=== PATIENT | female | born 1945 | race Caucasian/White ===

== ENCOUNTER 2020-12-07 01:50 | Emergency (ER) | payer MEDICARE, OTHER, SELFPAY ==
--- NOTE | ~2020-12-07 | CT_ITS ---
EXAMINATION: CT HEAD WITHOUT CONTRAST CT CERVICAL SPINE WITHOUT CONTRAST CLINICAL INFORMATION: Fall. COMPARISON: None. TECHNIQUE: Multidetector CT imaging of the head and cervical spine was performed without the use of intravenous contrast. Multiplanar reformats are reviewed. This CT examination was performed using dose optimization techniques as appropriate, variously including the following: *Automated exposure control *Adjustment of mA and/or kV according to patient size (this includes techniques or standardized protocols for targeted exams where dose is matched to indication/reason for exam; i.e. extremities or head) *Use of iterative reconstruction technique DLP: 980 mGy-cm. FINDINGS: There is no evidence of acute intracranial hemorrhage or territorial infarction. No abnormal mass effect or midline shift is seen. Spears to white matter differentiation is well preserved. No extra-axial fluid collections are identified. The ventricles are normal in size. Mild patchy subcortical and periventricular white matter low-attenuation changes statistically related to chronic small vessel ischemic disease. Thin left posterior parietal subgaleal hematoma. Underlying calvarium intact. The mastoid air cells and visualized portions of the paranasal sinuses are well-aerated. Atlantooccipital alignment is maintained. The vertebral bodies and posterior elements align normally. No acute fracture or subluxation. Vertebral body heights are maintained.Endplate osteophytes and tibial arthrosis present throughout the cervical spine, most likely from C3 through C6. Facet arthropathy present throughout the cervical spine. The cervicomedullary junction and spinal cord are grossly unremarkable. The paraspinal soft tissues are unremarkable. The imaged lung apices are clear CT/CT head/brain wo con IMPRESSION: No acute intracranial pathology. No cervical spine fracture or malalignment.
--- NOTE | ~2020-12-07 | CT_ITS ---
EXAMINATION: CT HEAD WITHOUT CONTRAST CT CERVICAL SPINE WITHOUT CONTRAST CLINICAL INFORMATION: Fall. COMPARISON: None. TECHNIQUE: Multidetector CT imaging of the head and cervical spine was performed without the use of intravenous contrast. Multiplanar reformats are reviewed. This CT examination was performed using dose optimization techniques as appropriate, variously including the following: *Automated exposure control *Adjustment of mA and/or kV according to patient size (this includes techniques or standardized protocols for targeted exams where dose is matched to indication/reason for exam; i.e. extremities or head) *Use of iterative reconstruction technique DLP: 980 mGy-cm. FINDINGS: There is no evidence of acute intracranial hemorrhage or territorial infarction. No abnormal mass effect or midline shift is seen. Spears to white matter differentiation is well preserved. No extra-axial fluid collections are identified. The ventricles are normal in size. Mild patchy subcortical and periventricular white matter low-attenuation changes statistically related to chronic small vessel ischemic disease. Thin left posterior parietal subgaleal hematoma. Underlying calvarium intact. The mastoid air cells and visualized portions of the paranasal sinuses are well-aerated. Atlantooccipital alignment is maintained. The vertebral bodies and posterior elements align normally. No acute fracture or subluxation. Vertebral body heights are maintained.Endplate osteophytes and tibial arthrosis present throughout the cervical spine, most likely from C3 through C6. Facet arthropathy present throughout the cervical spine. The cervicomedullary junction and spinal cord are grossly unremarkable. The paraspinal soft tissues are unremarkable. The imaged lung apices are clear CT/CT cervical spine wo con IMPRESSION: No acute intracranial pathology. No cervical spine fracture or malalignment.
[2020-12-07 02:03] VITALS: BP 206/101; PULSE 87; RESP 16; TEMP 37.1; O2SAT 98; BMI 23.1
[2020-12-07 02:14] VITALS: BP 153/96; PULSE 88; O2SAT 99
--- NOTE | 2020-12-07 02:21 | PC.NURSE ---
at bedside for primary eval.
--- NOTE | 2020-12-07 02:29 | ED_ITS ---
HPI - Fall General Chief Complaint: Fall Stated Complaint: fall Time Seen by Provider: 12/07/20 02:28 Source: patient Mode of arrival: EMS History of Present Illness HPI Narrative: This is a 75-year-old female with history of hypertension and arrives via EMS after she crouched down to pick a Peter pin up off of the bathroom floor began to rise back up, became unsteady without any associated dizziness/palpitations and states that she rolled over backwards hitting her gluteus 1st and then striking her head hard but denies any loss of consciousness. She denies any use of blood thinners. Related Data Allergies Allergy/AdvReac Type Severity Reaction Status Date / Time bupropion [From WELLBUTRIN] AdvReac Unknown ANXIETY Unverified 12/07/20 02:11 ibuprofen [IBUPROFEN] AdvReac Unknown DIZZY Unverified 12/07/20 02:11 Review of Systems Review of Systems: Pertinent positives and negatives as stated in HPI 10 point review of systems is otherwise negative. PMFSH Past Medical History Source: nursing notes reviewed Medical History Hypertension Lymphoma in remission Rheumatoid arthritis Social History Social History Advance Directives: No Advance Directives Information Provided: No Physical Exam Vital Signs: Vital Signs: Last Vital Signs Temp 98.7 F 12/07/20 02:03 Pulse 87 12/07/20 02:03 Resp 16 12/07/20 02:03 BP 206/101 H 12/07/20 02:03 Pulse Ox 98 12/07/20 02:03 Body Mass Index 23.1 VITAL SIGNS: Reviewed. GENERAL: Well developed, well nourished, in no acute distress. HEAD: Normocephalic/atraumatic EYES: PERRLA, EOMI OROPHARYNX: no oral lesions noted, posterior pharynx clear NECK: C-collar in place, no midline cervical spine tenderness on palpation LUNGS: Normal breath sounds. No adventitious sounds or accessory muscle use. SpO2<98> CARDIOVASCULAR: Regular rate and rhythm without noted murmurs ABDOMEN: Soft, non-tender, non-distended with bowel sounds. No rigidity. No guarding. No palpable masses or hernias notede. NEUROLOGIC: Alert and oriented x 4. Strength and sensation to light touch were grossly intact x 4. Course Course Course Narrative: 75-year-old female with history and clinical presentation consistent with head strike after fall. Doubt intracranial pathology, but will obtain head and cervical spine CT scans. C-collar removed after review of CT c-spine imaging that demonstrated no acute findings and exam was without midline tenderness on palpation or on ROM. No focal neurological deficits to suggest spinal cord injury Review of all investigations without acute findings and patient was discharged in stable condition. Discharge Plan Discharge Clinical Impression: Fall Patient Disposition: Home, Self-Care Instructions: Fall Prevention for Older Adults (ED) Additional Instructions: 1. Please resume all home medications as prescribed. 2. Follow-up with your primary care provider in the next 2-3 days for re- evaluation. Return to the ER for any acute worsening of symptoms. Referrals: Physician,Unknown [Primary Care Provider] - 2 days
--- NOTE | 2020-12-07 02:47 | PC.NURSE ---
Pt returns from CT on hospital bed. Pt aware of plan to await results. Pt requesting to use the bathroom, provided with a bedside commode.
[2020-12-07 04:28] VITALS: BP 176/100; PULSE 68; RESP 16; O2SAT 98
== END 2020-12-07 04:31 | disposition home or self-care (01) ==
PROVIDERS: Emergency Provider Student in an Organized Health Care Education/Training Program
DX: Z04.3 Encounter for examination and observation following other accident (principal); I10 Essential (primary) hypertension; Z91.81 History of falling
CPT/HCPCS: 70450; 72125; 99284

== ENCOUNTER 2023-02-06 16:38 | Emergency (ER) | payer MEDICARE, OTHER, SELFPAY ==
--- NOTE | ~2023-02-06 | XR_ITS ---
EXAMINATION: XR CHEST CLINICAL INFORMATION: Altered mental status. COMPARISON: None available. TECHNIQUE: 2 views of the chest were obtained. FINDINGS: Subtle focal airspace disease at the right middle lobe, in the appropriate clinical setting may represent evolving pneumonia. Subtle focal asymmetry is noted at the first partial chondral junction on the right, may represent prominent costochondral junction versus airspace disease, seen only on the frontal projection. The remainder of the lung barrett are clear. The cardiac mediastinal silhouette is within normal limit. No evidence of any pleural effusion or pneumothorax. The heart size is within normal limits. XR/XR chest 2V IMPRESSION: 1. Subtle asymmetric focal airspace disease at right middle lobe, in the appropriate clinical setting may represent pneumonia. 2. Focal asymmetric opacity at right lung apex in the region of the costochondral junction, may represent hypertrophic costochondral junction versus underlying airspace disease. Follow-up to resolution is recommended.
--- NOTE | ~2023-02-06 | CT_ITS ---
EXAMINATION: CT HEAD WITHOUT CONTRAST CLINICAL INFORMATION: Head injury COMPARISON: CT head from 12/07/2020 TECHNIQUE: Contiguous axial imaging was performed from the skull base to vertex without intravenous administration of contrast. This CT examination was performed using dose optimization techniques as appropriate, variously including the following: *Automated exposure control *Adjustment of mA and/or kV according to patient size (this includes techniques or standardized protocols for targeted exams where dose is matched to indication/reason for exam; i.e. extremities or head) *Use of iterative reconstruction technique DLP: 606.11 mGy-cm FINDINGS: There is no evidence of acute intracranial hemorrhage or territorial infarction. Chronic white matter small vessel ischemic changes. Cerebral atrophy with commensurate ventricular changes. No abnormal mass effect or midline shift is seen. Spears to white matter differentiation is well preserved. No extra-axial fluid collections are identified. There is no abnormal attenuation within the brain parenchyma. Slight soft tissue swelling along the left posterior parieto-occipital bone without underlying bony defect identified. The osseous structures and soft tissues are normal. The mastoid air cells and visualized portions of the paranasal sinuses are well aerated. CT/CT cervical spine wo IV con IMPRESSION: 1. No acute intracranial pathology. 2. Slight soft tissue swelling along the left posterior parieto-occipital bone without underlying bony defect identified. EXAMINATION: Noncontrast CT scan of the cervical spine. INDICATION: Pain COMPARISON: CT cervical spine from 12/07/2020 TECHNIQUE: Helical, multidetector axial images were obtained from the occiput to the upper thorax. Coronal and sagittal reformats of the cervical spine were provided for interpretation. DLP: 223.02 mGy-cm FINDINGS: No acute fractures or dislocations of the cervical spine are seen. Multilevel degenerative changes. Straightening of normal cervical curvature which may be secondary to patient positioning versus muscle spasm. Anatomic alignment and positioning of the vertebral bodies and posterior elements is noted. The atlantoaxial joint and craniovertebral articulations are normal without evidence of subluxation. There is no prevertebral soft tissue swelling. Stable appearing heterogeneous right thyroid nodule measuring up to 2.3 cm. If clinically warranted can consider further evaluation with dedicated thyroid ultrasound. Biapical pleural parenchymal scarring. IMPRESSION: 1. No acute visible fracture or dislocation. 2. Multilevel degenerative changes. Straightening of normal cervical curvature which may be secondary to patient positioning versus muscle spasm. 3. Stable appearing heterogeneous right thyroid nodule measuring up to 2.3 cm. If clinically warranted can consider further evaluation with dedicated thyroid ultrasound.
[2023-02-06 16:46] VITALS: BP 162/88; PULSE 92; O2SAT 96
[2023-02-06 16:49] VITALS: BP 183/90; PULSE 90; RESP 18; TEMP 37; O2SAT 97; BMI 19.9
--- NOTE | 2023-02-06 17:29 | ED_ITS ---
HPI - Fall General Chief Complaint: Fall Stated Complaint: Fall w/ headstrike Time Seen by Provider: 02/06/23 16:54 Source: patient and EMS Mode of arrival: EMS Limitations: other (Alzheimer's) History of Present Illness HPI Narrative: 77-year-old female with reported history of early-onset Alzheimer's presents after a fall. Was a witnessed fall that appear to be mechanical when she missed 1 step. Patient does not remember any of the events that took place. She did reportedly hit her head. Is unclear whether she lost consciousness. She denies any headache, nausea, vomiting. There is no clear relieving or exacerbating features. Patient denies any extremity pain or complaints. EMS brought patient in. They placed a crit cervical collar on for her. She denies any active neck pain except for the collar. She denies any numbness or tingling or focal weakness. Related Data Home Medications Medication Instructions Recorded Confirmed donepezil 10 mg tablet 10 mg PO BEDTIME 02/06/23 02/06/23 leflunomide 20 mg tablet 20 mg PO DAILY 02/06/23 lifitegrast 5 % eye drops in a 1 drp ophthalmic (eye) BID 02/06/23 dropperette (Xiidra) metoprolol succinate 50 mg 50 mg PO DAILY 02/06/23 02/06/23 tablet,extended release 24 hr prednisone 1 mg tablet 3 mg PO DAILY 02/06/23 sertraline 25 mg tablet 25 mg PO DAILY 02/06/23 02/06/23 valsartan 80 mg tablet 80 mg PO DAILY 02/06/23 02/06/23 Allergies Allergy/AdvReac Type Severity Reaction Status Date / Time bupropion [From WELLBUTRIN] AdvReac Unknown ANXIETY Verified 02/06/23 21:45 ibuprofen [IBUPROFEN] AdvReac Unknown DIZZY Verified 02/06/23 21:45 Review of Systems Review of Systems: CONSTITUTIONAL: Denies weight loss, fever and chills. HEENT: Denies changes in vision and hearing. RESPIRATORY: Denies SOB and cough. CV: Denies palpitations no CP. GI: Denies abdominal pain, nausea, vomiting and diarrhea. : Denies dysuria and urinary frequency. MSK: Denies myalgia and joint pain. SKIN: Denies rash and pruritus. NEUROLOGICAL: Denies headache and syncope. PSYCHIATRIC: Denies recent changes in mood. Denies anxiety and depression. All other ROS are negative unless in HPI [facility] Past Medical History Medical History Hypertension Lymphoma in remission Rheumatoid arthritis Social History Social History Alcohol intake: never Smoked in Last 30 Days: No Use of substances other than those prescribed or required for medical reasons: No Advance Directives: No Advance Directives Information Provided: No Physical Exam Vital Signs: Vital Signs: Last Vital Signs Temp 98.5 F 02/06/23 19:15 Pulse 89 02/06/23 19:15 Resp 16 02/06/23 19:15 BP 177/87 H 02/06/23 19:15 Pulse Ox 98 02/06/23 19:15 O2 Del Method Room Air 02/06/23 19:15 BMI result Body Mass Index 19.9 GEN: Well developed, no acute distress, alert, oriented HEENT: Normocephalic, atraumatic, normal external ears, nose appears normal, no oropharyngeal edema or exudates Eyes: Normal to appearance Neck: C-collar in place, does have midline tenderness at C7-T1 Respiratory: Talks in complete sentences, no respiratory distress, clear to auscultation bilaterally Cardiovascular: Regular rate and rhythm, no murmurs rubs or gallops Abdomen: Soft, nontender, nondistended, no guarding, no rebound Back: No CVA tenderness Extremities: No clubbing cyanosis or edema Neurologic: No focal neurologic deficits, cranial nerves 2-12 intact, strength is 5/5 bilaterally Skin: No rash Course Reevaluation(s) Reevaluation #1: C-collar will be removed Time: 18:04 Reevaluation #2: Patient is a bit unsteady on her feet. She will stay overnight for physical therapy and Case Management evaluation. I will place the patient physician observation. Will also check urinalysis. Time: 18:44 Reevaluation #3: transition of care to Dr. Tam Time: 02:00 Medications Administered Discontinued Medications Generic Name Dose Route Start Last Admin Trade Name Freq PRN Reason Stop Dose Admin Metoprolol Succinate 50 mg 02/06/23 18:08 02/06/23 18:14 Metoprolol Succinate Er 50 Mg Tab.Er.24h PO 02/06/23 18:09 50 mg ONCE ONE Administration Protocol Valsartan 40 mg 02/06/23 18:08 02/06/23 18:14 Valsartan 40 Mg Tablet PO 02/06/23 18:09 40 mg ONCE ONE Administration Protocol Medical Decision Making Medical Decision Making MDM Narrative: Patient has memory deficits but had a witnessed mechanical fall. She did reportedly hit her head. There is no evidence of head trauma. Will obtain a CT of the head and cervical spine to make sure there is no acute injury. Patient offers no focal deficits. She denies any active symptoms at this time. No indication for routine laboratory analysis. Differential Diagnosis Differential Diagnoses: The differential diagnosis associated with the presentation includes (Head injury, ICH, subdural hematoma, epidural hematoma, subarachnoid hemorrhage, memory deficit, concussion, postconcussive syndrome) Admission/Observation Consideration of admission/observation: Escalation of care including admission/observation considered Lab Data Labs: Lab Results 02/06/23 Range/Units 22:22 Urine Color Yellow Urine Appearance Clear Urine pH 5.5 (5.0-9.0) Ur Specific [place] 1.015 (1.005-1.025) Urine Protein Negative (Neg-Trace) mg/dL Urine Glucose (UA) Negative (Negative) mg/dL Urine Ketones Negative (Negative) mg/dL Urine Blood Negative (Negative) Urine Nitrite Negative (Negative) Ur Leukocyte Esterase Negative (Negative) Independent Interpretation I performed an independent interpretation of an: CT Scan (Cervical spine, no acute traumatic injury, head: No acute traumatic injury) Radiology Impression Discussion of test interpretation with radiology: I have reviewed the radiologist's reading. Radiologist Impression: ? Rob Rich MD [facility] My List ?7? To Be Seen ?5? ED ?15? EDBH ?3? [facility]/RP/Pivot ?4? Beryl Omer? ? ED Bed 02 - ED2? General Medical? 26 F? With Doctor? 3? ?? 1h 40m? ?? REG ER? Draft? Rob Rich lump on left side of abd? Order BP 114/84 Pulse 78 Resp 18 Temp 98.2 F O2 Sat 100% (RA) Ultrasound Zulma Pena? ? ED Bed 06 - ED6? Fall? 77 F? With Doctor? 3? ?? 1h 25m? ?? REG ER? Draft? HilarioRob Fall w/ headstrike? Order BP 201/102 Pulse 100 Resp 18 Temp O2 Sat 98% (RA) CT Marissa Meadows? ? ED Bed 08 - ED8? Arrhythmia/Palpitations? 69 F? With Doctor? 2? ?? 1h 15m? ?? REG ER? Draft? HilarioRob weakness,vomiting,rapid heart rate? Order BP 135/84 Pulse 90 Resp 20 Temp 97.8 F O2 Sat 98% (RA) ?Chemistry ?Hematology ECG 12 erna... CT X-Ray [facility] Nursing Dorys Coon? ? ED Bed 09 - ED9? Neuro Symptoms/Deficit? 47 F? Ready for Discharge? 2? ?? 3h 1m? ?? REG ER? Draft? carpopedal spasms with BP cuff Rob Rich Daniel ? stroke? Order BP 149/93 Pulse 94 Resp 15 Temp O2 Sat 93% (RA) ?Chemistry Coagulatio... Hematology ECG 12 erna... Glucose, W... Mar UA CC w/rf... Nursing Colt Zuniga? ? ED Bed 12 - ED12? Altered Mental Status? 33 M? With Doctor? 2? ?? 2h 37m? ?? REG ER? Draft? Rob Rich ETOH? Order BP 126/66 Pulse 89 Resp 16 Temp 98.0 F O2 Sat 98% (RA) ?Toxicology ?UA ClnCatc... Chemistry Coagulatio... ?Hematology Consult to... Rika Truong? ? ED Bed 14 - ED14? Back Pain/Injury? 57 F? With Doctor? 3? ?? 1h 4m? ?? REG ER? Draft? RME done Rbo Rich upper back pain,abnormal labs? Order BP 150/71 Pulse 81 Resp 16 Temp 98.3 F O2 Sat 99% (RA) Chemistry Hematology Nelsy Ibarra? ? ED Bed 20 - ED20? Abdominal Pain? 43 F? With Doctor? 3? ?? 1h 7m? ?? REG ER? Draft? RME done Rob Rich abd pain? Order BP 163/91 Pulse 105 Resp 20 Temp 99.9 F O2 Sat 98% (RA) ?Chemistry ?Hematology Mar UA CC w/rf... Ur Preg Te... CT Nursing CT - CT cervical spine wo IV con; CT head/brain wo IV con Zulma Pena??77??F??1945 ? Allergy/Adv: bupropion, ibuprofen Close Results Imaging ACTIVITY DATE EXAM STATUS AUTHOR 02/06/23 17:[address] Signed Fadl,Samer 02/06/23 17:[address] Signed Fadl,Samer Imaging Reports Close Cervical Spine CT (Signed) Fadl,Samer - 02/06/[address] (Signed) Fadl,Samer - 02/06/23 Launch?Image [place] [id number] CT Scan Report Signed Patient: Zulma Pena MR#: [id number] : 1945 Acct:[id number] Age/Sex: 77 / F ADM Date: 02/06/23 Loc: HO.ED Attending Dr: Ordering Physician: Rob Rich MD Date of Service: 02/06/23 Procedure(s): CT cervical spine wo IV con Accession Number(s): [id number] cc: Rob Rich MD~ EXAMINATION: CT HEAD WITHOUT CONTRAST CLINICAL INFORMATION: Head injury? COMPARISON: CT head from 12/07/2020 TECHNIQUE: Contiguous axial imaging was performed from the skull base to vertex without intravenous administration of contrast. This CT examination was performed using dose optimization techniques as appropriate, variously including the following: *Automated exposure control *Adjustment of mA and/or kV according to patient size (this includes techniques or standardized protocols for targeted exams where dose is matched to indication/reason for exam; i.e. extremities or head) *Use of iterative reconstruction technique DLP: 606.11 mGy-cm FINDINGS: There is no evidence of acute intracranial hemorrhage or territorial infarction. Chronic white matter small vessel ischemic changes. Cerebral atrophy with commensurate ventricular changes. No abnormal mass effect or midline shift is seen. Spears to white matter differentiation is well preserved. No extra-axial fluid collections are identified. There is no abnormal attenuation within the brain parenchyma. Slight soft tissue swelling along the left posterior parieto-occipital bone without underlying bony defect identified. The osseous structures and soft tissues are normal. The mastoid air cells and visualized portions of the paranasal sinuses are well aerated. ? CT/CT cervical spine wo IV con IMPRESSION: 1.? No acute intracranial pathology. 2.? Slight soft tissue swelling along the left posterior parieto-occipital bone without underlying bony defect identified. ? ? EXAMINATION: Noncontrast CT scan of the cervical spine. ? INDICATION: Pain ? COMPARISON: CT cervical spine from 12/07/2020 ? TECHNIQUE:? Helical, multidetector axial images were obtained from the occiput to the upper thorax. Coronal and sagittal reformats of the cervical spine were provided for interpretation. ? DLP: 223.02 mGy-cm ? FINDINGS: No acute fractures or dislocations of the cervical spine are seen. Multilevel degenerative changes. Straightening of normal cervical curvature which may be secondary to patient positioning versus muscle spasm. Anatomic alignment and positioning of the vertebral bodies and posterior elements is noted. The atlantoaxial joint and craniovertebral articulations are normal without evidence of subluxation. There is no prevertebral soft tissue swelling. ? Stable appearing heterogeneous right thyroid nodule measuring up to 2.3 cm. If clinically warranted can consider further evaluation with dedicated thyroid ultrasound. Biapical pleural parenchymal scarring. ? IMPRESSION: 1.? No acute visible fracture or dislocation. 2.? Multilevel degenerative changes. Straightening of normal cervical curvature which may be secondary to patient positioning versus muscle spasm. 3.? Stable appearing heterogeneous right thyroid nodule measuring up to 2.3 cm. If clinically warranted can consider further evaluation with dedicated thyroid ultrasound. Dictated By: Contreras Gutiérrez MD Signed By: <Electronically signed by Contreras Gutiérrez MD in OV> 02/06/23 1758 DD/ 173 TD/TT:? 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 History obtained from or confirmed by: EMS Prescription Management I considered prescription management with: Pain Medication Chronic Conditions Patient?s care impacted by: Other (Early-onset dementia) Discharge Plan Discharge Clinical Impression: Accidental fall, Acute head injury, Acute neck pain Patient Disposition: Still a Patient Prescriptions: No Action metoprolol succinate 50 mg tablet extended release 24 hr 50 mg PO DAILY donepezil 10 mg tablet 10 mg PO BEDTIME valsartan 80 mg tablet 80 mg PO DAILY leflunomide 20 mg tablet 20 mg PO DAILY prednisone 1 mg tablet 3 mg PO DAILY sertraline 25 mg tablet 25 mg PO DAILY Xiidra 5 % dropperette 1 drp ophthalmic (eye) BID
[2023-02-06 17:53] VITALS: BP 201/102; PULSE 100; RESP 18; O2SAT 98
--- NOTE | 2023-02-06 18:04 | PC.NURSE ---
fabián blood pressure done on pt 205/95 right arm
[2023-02-06] MEDS: Metoprolol Succinate ER 50 MG TAB.ER.24H PO (18:14)
[2023-02-06] MEDS: Valsartan 40 MG TABLET PO (18:14)
--- NOTE | 2023-02-06 18:36 | PC.NURSE ---
patient ambulated to bathroom needed 1 assistance by tech. patient has unsteady gait
--- NOTE | 2023-02-06 18:51 | PC.NURSE ---
spoke to dr mercado regarding patients gait to the bathroom, he recommended pt stay for PT consult. patient changed into hospital attire, given a sandwich, pudding and juice. patient shows no signs of distress, call rivers at bedside
[2023-02-06 19:15] VITALS: BP 177/87; PULSE 89; RESP 16; TEMP 36.9; O2SAT 98
--- NOTE | 2023-02-06 19:17 | PC.NURSE ---
This handbook writer assumed care of this Pt at 1900. Pt sitting on stretcher, denies any pain. Pt A&O to self, year, states I was told I fell but I don't remember how . Pt has small bilateral elbow abrasions, one bruise to right upper forearm Pt states from previous blood work drawn a few days , Pt has soft left knee brace. Pt given PO fluids as requested, pending urine sample.
--- NOTE | 2023-02-06 21:59 | PC.NURSE ---
Pt one assist to BR, urine sample collected and sent to lab. Pt furniture walks. Nurse to nurse report given to Bonita, Pt will be transported via W/C to ED overflow area. Pt aware of plan.
[2023-02-06 22:31] LABS: Appearance Urine Clear; Color Urine Yellow; Glucose Urine UA Negative (Negative); Leukocyte Esterase Urine Negative (Negative); Nitrite Urine Negative (Negative); PH 5.5 (5.0-9.0); Specific Gravity - Urine 1.015 (1.005-1.025); Urine Blood Negative (Negative); Urine Ketones Negative (Negative); Urine Protein Negative (Neg-Trace)
[2023-02-07 05:43] VITALS: BP 151/65; PULSE 99; RESP 18; TEMP 36.4
--- NOTE | 2023-02-07 06:07 | PC.NURSE ---
ambulated to bathroom several times during the night unsteady gait. dosnt remember to call. has abrasions on bilat. arms and redness to back of her head. skin intact.
[2023-02-07 07:08] VITALS: BP 173/80; PULSE 77; RESP 19; TEMP 37.1; O2SAT 97
--- NOTE | 2023-02-07 07:10 | PHA.MEDREC ---
Pharmacy Consult ? Medication Reconciliation Pharmacy has completed the medication reconciliation. medrec checked in am
--- NOTE | 2023-02-07 09:07 | PHA.MEDREC ---
Pharmacy Consult ? Medication Reconciliation Pharmacy has completed the medication reconciliation.
[2023-02-07] MEDS: Valsartan 80 MG TABLET PO (10:09)
[2023-02-07] MEDS: Metoprolol Succinate ER 50 MG TAB.ER.24H PO (10:09)
[2023-02-07] MEDS: Leflunomide 10 MG TABLET 20 MG PO (10:09)
--- NOTE | 2023-02-07 10:45 | PC.NURSE ---
PT IS A/O AND CONFUSION. PT ATE BREAKFAST EARLIER . PT IS REPEATEDLY TRYING TO GET OOB AND CONFUSED.
--- NOTE | 2023-02-07 11:38 | MHC.CM.PN ---
EMR REVIEWED, PT S/P FALL W/NECK PAIN, P.T. EVAL PENDING AND WILL BE COMPLETED TOMORROW, CM MET W/PT WHO IS A&O HOWEVER HAS EARLY DEMENTIA AND IS UNABLE TO ANSWER ALL QUESTIONS, CM ATTEMPTED TO CALL LTAC, [facility] WHERE PT LIVES AT 11:35AM [phone] TO DISCUSS DISPO AND REQUEST COPY OF D/C SUMMARY. PT DOES REPORT SHE IS INDEP W/AMBULATION, DENIES USE OF DME AND LIVES IN LONG-TERM AT [facility], PT BELIEVES HER PCP IS DR FELIPE SPRINGER HOWEVER NEED TO CONFIRM W/LONG-TERM AND HCP IS HER BROTHER SANDRA CARNES OR HER FRIEND ARCELIA, PT DOES NOT HAVE CONTACT INFO. CM WILL REATTEMPT TO LT[facility] LATER TODAY.
--- NOTE | 2023-02-07 12:30 | MHC.EDTECH ---
patient refusing to sit back down, wanting to leave, refusing her walker and patient is very unsteady. stating that we are not honoring her rights as a human being. explained to patient that we just want her to be safe and not fall. very agitated. her brother called and said he was coming to visit. told patient, and she stated that she would leave with him wether we like it or not.
[2023-02-07 14:36] VITALS: BP 167/69; PULSE 75; RESP 18; TEMP 37.1; O2SAT 98
--- NOTE | 2023-02-07 15:55 | MHC.CM.PN ---
Addendum entered by Kirsten Louis RN 02/07/23 16:27: CM RECEIVED ANOTHER CALL FROM GERSON AT [facility], GERSON WAS UPDATED AND REPORTS PT'S HCP ARCELIA'S NUMBER IS [phone]. Addendum entered by Kirsten Louis RN 02/07/23 16:21: per ed provider pt will need further work up as pt is very confused and was a&o yesterday. Original Note: CM MET W/PT PER [facility] NURSE REQUEST, PT HAVING DIFFICULTY REMEMBERING WHAT THE PLAN WAS AND AFRAID PEOPLE ARE MAKING DECISIONS FOR HER, PT DID GIVE CM VERBAL CONSENT TO GIVE UPDATES/MEDICAL INFO TO HER PRIMARY CONTACT MANFRED MARRERO, NUMBER ON FILE IS CORRECT. CM RECEIVED CALL BACK FROM GERSON WHO IS A DIRECTOR AT [facility] [phone], PER GERSON SHE HAS BEEN UNABLE TO REACH PT'S HCP ARCELIA FOR THE PAST FEW HOURS AND WILL BE FAXING HCP TO CM OFFICE FAX. 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 MANFRED MARRERO CONCERNED PT HAS HAD A CONSIDERATE DECLINE W/MENTATION SINCE YESTERDAY AND WAS MAKING PARAMOID STATEMENTS AND SAYING THE PEOPLE FROM [facility] WERE KEEPING HER FROM LEAVING. ED PROVIDER AWARE AND WILL SEE PT. MANFRED MARRERO ALSO REPORTS PT HAS HX OF PTSD, MAJOR DEPRESSION/ANXIETY, SOJRN'S SYNDROME, HYPOTHYROID, GERD, HTN, NEUROPATHY, SCIATICA AD HX OF CA. ED PROVIDER AWARE VIA TIGER AND PHONE.
[2023-02-07 17:13] LABS: MANUAL DIFF FLAG NO
[2023-02-07 17:14] LABS: Basophils Absolute Auto 0.1 X10*3/uL (0.0-0.2); Basophils Percent Auto 1.3 % (0-2); Eosinophils Absolute Auto 0.1 X10*3/uL (0.0-0.4); Eosinophils Percent Auto 2.1 % (0-4); Hematocrit 38.6 % (37.0-47.0); Hemoglobin 12.2 g/dl (12.0-16.0); Imm Gran Abs Auto 0.04 X10*3/uL (0.00-0.03); Imm Gran Pct Auto 0.7 % (0.0-0.4); Lymphocytes Absolute Auto 0.9 X10*3/uL (1.2-4.9); Lymphocytes Percent Auto 15.2 % (20-40); Mean Corpuscular HGB Conc 31.6 g/dl (31.0-35.0); Mean Corpuscular Hemoglobin 29.5 pg (27.0-33.0); Mean Corpuscular Volume 93.5 fL (80.0-98.0); Mean Platelet Volume 9.9 fL (9.4-12.3); Monocytes Absolute Auto 0.6 X10*3/uL (0.1-1.2); Neutrophils Absolute Auto 4.3 x10*3/uL (2.0-8.3); Neutrophils Percent Auto 70.7 % (45-73); Platelet Count 249 X10*3/uL (160-400); Red Blood Count 4.13 X10*6/uL (4.20-5.50); Red Cell Distribution Width 14.7 % (11.0-16.0); White Blood Count 6.1 X10*3/uL (4.8-10.8)
[2023-02-07 17:28] LABS: COVID-19 Test Negative (Negative); IDNOW Serial# BCCEAD1C
--- NOTE | 2023-02-07 17:31 | PC.NURSE ---
Brother Justin Pena [phone] For any updates and if needed.
[2023-02-07 17:56] LABS: Alanine Aminotransferase 22 U/L (0-31); Albumin Level 3.9 g/dL (3.5-5.0); Alkaline Phosphatase 97 U/L (39-117); Anion Gap 15 (12-20); Aspartate Amino Transferase 29 U/L (5-31); Bilirubin Direct 0.3 mg/dL (0.0-0.5); Bilirubin Total 0.4 mg/dL (0.0-1.0); Blood Urea Nitrogen 18 mg/dL (9-16); Carbon Dioxide 25 mmol/L (22-29); Chloride 109 mmol/L (96-108); Creatinine Clr Calc Pharmacy 60.4; Estimated Glomerular Filt Rate > 60; Glucose Random 94 mg/dL (60-115); Potassium 4.3 mmol/L (3.3-5.1); Sodium 145 mmol/L (135-145); Total Protein 7.3 g/dL (6.5-8.0)
[2023-02-07 19:34] VITALS: BP 209/86; PULSE 96; RESP 18; TEMP 36.4; O2SAT 97
--- NOTE | 2023-02-07 19:36 | PC.NURSE ---
Blood pressure noted to be elevated at this time. Provider made aware and will come to evaluate patient.
[2023-02-07] MEDS: Amoxicillin/Potassium Clav 875 MG TABLET PO (21:16)
[2023-02-07] MEDS: Sertraline HCL 25 MG TABLET PO (21:16)
[2023-02-07] MEDS: Donepezil HCl 10 MG TABLET PO (21:16)
--- NOTE | 2023-02-07 21:33 | PC.NURSE ---
Patient currently sitting on recliner watching a movie and eating sherbert. Patient with no s/s of distress noted and has no complaints at this time.
[2023-02-07 23:39] VITALS: BP 166/72; PULSE 84; RESP 18; TEMP 36.8; O2SAT 96
--- NOTE | 2023-02-08 01:44 | PC.NURSE ---
Patient pacing around her bed. Provider made aware of this.
--- NOTE | 2023-02-08 03:36 | PC.NURSE ---
Assumed care of pt. Pt sleeping, no acute distress at this time. Continuing plan of care.
[2023-02-08 06:00] VITALS: BP 178/72; PULSE 76; RESP 15; TEMP 36.8; O2SAT 96
[2023-02-08 08:47] VITALS: BP 178/72; PULSE 76; O2SAT 96
[2023-02-08] MEDS: Valsartan 80 MG TABLET PO (09:53)
[2023-02-08] MEDS: Metoprolol Succinate ER 50 MG TAB.ER.24H PO (09:53)
[2023-02-08] MEDS: Amoxicillin/Potassium Clav 875 MG TABLET PO ×2 (09:53→20:30)
[2023-02-08] MEDS: Leflunomide 10 MG TABLET 20 MG PO (10:32)
--- NOTE | 2023-02-08 14:01 | MHC.CM.ED ---
Pt continues to board in the ED: PT eval supports STR. Pt confused and has periods of agitation but easily redirected. Spoke with pt's friend Angeline who states pt has been a private pay resident of [facility] since December 2022. Pt was formally evaluated in October by neuro psych who concluded Alzheimer's dementia. Angeline states pt's mental status has exponentially worsened in 48 hours Angeline spoke w/pt via phone and has concerns about a occult head bleed (Ruth Martinez is a retired RN) Pt has been referred to STR and Acute rehab based on PT eval without offers. Pt does not have a qualifying [facility] stay. Angeline states pt is in the process of spending down assets [facility] ED PA updated on CM conversation w/Angeline for ? additional testing. ED CM to follow. Of note, pt may be able to d/c to the memory unit at [facility] should she improve and there is bed availability.
[2023-02-08 14:28] LABS: Appearance Urine Clear; Color Urine Yellow; Glucose Urine UA Negative (Negative); Leukocyte Esterase Urine Negative (Negative); Nitrite Urine Negative (Negative); PH 5.5 (5.0-9.0); Specific Gravity - Urine 1.025 (1.005-1.025); Urine Blood Negative (Negative); Urine Ketones Trace mg/dL (Negative); Urine Protein Trace mg/dL (Neg-Trace)
[2023-02-08 15:12] VITALS: BP 169/72; PULSE 81; RESP 20; TEMP 36.7
--- NOTE | 2023-02-08 16:25 | MHC.EDTECH ---
THIS PCT ASSUMED CARE OF PT AT 1500 ,PT WAS ASSISTED TO WALK TO BATHROOM AND BACK TO BED .
--- NOTE | 2023-02-08 18:08 | MHC.EDTECH ---
patient was set up for dinner ate 70 % of meals drank 240 ml fluids ,pt is very restless ,rn aware .
--- NOTE | 2023-02-08 19:56 | PC.NURSE ---
Assumed care at 07:00. Patient initially alert, oriented to person and situation, not to time or place. Patient gradually presenting as more confused and agitated in the afternoon into evening, repeatedly forgetting location, delusional ideation, believes she is at a restaurant or her former home. Patient yelling at staff and defiant regarding falls risk. Assisted with walker to ambulate, unsteady at times. Provider notified of increased level of confusion. Besides forgetfulness and impulsiveness and apparantly delusional ideation, other neurologic status appears intact. No additional PRNs at this time, but general supervisor notified, telesitter and then 1:1 sitter provided for safety. Patient was very confused about plan of care, thought she was in retirement, CM came to help reiterate plan of care, and patient was redirectable.
--- NOTE | 2023-02-08 20:24 | MHC.CM.ED ---
Pt was evaluated by Burak PARIS, as friend, Ruth Martinez, is concerned about patients mental status. Pt is confused, but able to carry on a conversation. Ate full dinner. Per RAINA, patient is neurology intact, with no signs of [employer] depression. No concerns for intercranial bleeding. No need for additional CT scan at this time. CM spoke at length with patient. She is confused to time and to why she is in the hospital. Does not remember falling. Tells CM she is retired, was living independently in a convent prior to [facility]. 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 Pt does not have a qualifying stay for [facility], and no payor source. Pt is willing to have Home PT. Missed call from Director at [facility]. Returned call, no answer. Called [employer] security consultant number and spoke with Rosemarie CARBAJAL, who will be working all week, as Candelaria is on vacation. Rosemarie requests CM call her in the morning, as she will have access to patients information then. [facility] patient has been living at [facility] since December. CM to call Rosemarie in the morning to discuss possibility of patient returning to [facility] with home PT. CM needs to ensure a safe discharge for this patient, so she will stay overnight an additional night. Pt is aware of possibility of home PT. CM will follow for discharge needs.
[2023-02-08] MEDS: Sertraline HCL 25 MG TABLET PO (20:30)
[2023-02-08] MEDS: Donepezil HCl 10 MG TABLET PO (20:30)
--- NOTE | 2023-02-08 21:02 | MHC.EDTECH ---
patient was assisted for ambulation to bathroom and back to bed ,pt void lg amount of urine ,vitals sign taken .
[2023-02-08 21:31] VITALS: BP 188/77; PULSE 87; RESP 16; TEMP 36.7
--- NOTE | 2023-02-09 00:15 | MHC.EDTECH ---
0000 ROUNDING DONE ,PT SLEEPING COMFORTABLE IN BED .
--- NOTE | 2023-02-09 04:19 | PC.NURSE ---
Assumed care at 1900. Pt ambulated to bathroom multiple times, standby assist with walker. Admitted to increased weakness from baseline, tolerated activity well. One episode of incontinence d/t overflow/urge. Pt accepted brief to wear while asleep. BP elevated, PA aware, no new orders given. Medicated per AUG. Pt A&Ox2. Forgetful, requires frequent redirection. Pt pleasant and follows commands, but continues to believe this is her apartment and people are intruding. No c/o pain. Slept in naps. Repositioned independently. Bed alarm on. Care ongoing.
--- NOTE | 2023-02-09 06:14 | MHC.EDTECH ---
PATIENT WAS ASSISTED WITH AMBULATION TO BATHROOM ,VOID AND HAD A BOWEL MOVEMENT ,PT BACK IN BED .
[2023-02-09 06:52] VITALS: BP 173/82; PULSE 74; RESP 16; TEMP 36.7; O2SAT 98
[2023-02-09] MEDS: Amoxicillin/Potassium Clav 875 MG TABLET PO ×2 (07:27→19:53)
[2023-02-09] MEDS: Metoprolol Succinate ER 50 MG TAB.ER.24H PO (07:27)
[2023-02-09] MEDS: Valsartan 80 MG TABLET PO (07:27)
[2023-02-09] MEDS: Leflunomide 10 MG TABLET 20 MG PO (07:27)
--- NOTE | 2023-02-09 09:44 | MHC.CM.ED ---
Addendum entered by Jaimie Choi 02/09/23 14:25: Copy of HCP obtained from Rosemarie. Spoke with patient's HCP, Mony, via telephone at [phone]. Patient is still her own person and is able to make her own decisions and is her own power of estate planning attorney. Patient does have some funds but Ruth Martinez is in the process of trying to complete a [employer] application so patient will qualify for a [facility] program. Received message requesting to call Ruth Martinez. T/W spoke with Ruth Martinez via telephone at [phone]. Ruth Martinez feels patient will need to go to [facility] prior to returning to [facility] due to deconditioning. Patient was previously part of [facility]. Ruth Martinez spoke with Sister Ivory about a bed at [facility]. No bed is available at this time. Patient was only diagnosed with Alzheimer's in October 2022. Patient moved into [facility] on 01/11/23. Patient is typically able to function independently. Ruth Martinez was concerned patient was so confused upon coming to the ER. However Ruth Martinez also feels patient is clearing and improving. Clinical updates sent to facilities still following patient. Original Note: Patient remain in ER overflow. Attempted to speak to Rosemarie CARBAJAL for [facility] via telephone at [phone]. Rosemarie is not in the office until 11am. Will recall Rosemarie then. Continue to monitor for d/c needs.
[2023-02-09] MEDS: Acetaminophen 325 MG TABLET 650 MG PO (13:32)
[2023-02-09 14:20] VITALS: BP 120/58; PULSE 69; RESP 18; TEMP 36.3; O2SAT 98
--- NOTE | 2023-02-09 16:24 | PC.NURSE ---
Pt up walking around unit with 1:1 observer. pt agitated, answering orientation questions correctly but exhibiting very poor insight. pt insistent she is not a patient and wants staff to call a taxi for her.
[2023-02-09] MEDS: Donepezil HCl 10 MG TABLET PO (19:53)
[2023-02-09] MEDS: LORazepam 1 MG TABLET PO (19:53)
[2023-02-09] MEDS: Sertraline HCL 25 MG TABLET PO (19:53)
--- NOTE | 2023-02-09 20:12 | MHC.CM.ED ---
Addendum entered by Lizette Davalos 02/09/23 21:06: CM declined bed offers for STR with private pay due to lack of funds via [facility]. Addendum entered by Lizette Davalos 02/09/23 20:49: [facility] booked for 10 am. Paperwork and Med Nec with ED payroll secretary. Original Note: [facility], [facility] and [facility] are offering a bed with private pay rates. Discussed at length with patient, her HCP/POA Mony and friend Ruth Martinez, reviewing daily costs and request for 30 days private pay up front. According to Mony and Ruth Martinez, patient does not have funds to pay for a month up front and pay her February rent at [facility]. Pt is unsure of all finances, but is open both STR and home PT. HCP/Mony spoke with patient via telephone, but patient has Alzheimer's dementia and does not remember full conversation. CM again spoke with patient and explained that she may not have enough funds to go to STR, but could have PT at her home at [facility] from the A. Explained to patient that CM would speak with her in the morning, but that she would probably return to [facility] with home services for PT arranged. Pt is aware that she needs to stay in the OverFlow unit overnight. Pt is confused as to why she is here. Needs explanations repeated and reassurance.HCP/Mony requesting referrals for home PT be made. Mony will visit with patient at her [facility] tomorrow at 1pm. Requesting that patient be discharged to home tomorrow between 10-11 so she can have lunch at the [facility]. CM will verify plan of care with patient in the morning, speak with [facility] in the morning regarding return to facility, and book transportation then. [facility] services. BLS transport booked. CM following for discharge needs.
[2023-02-09 22:00] VITALS: BP 158/102; PULSE 92; RESP 17; TEMP 36.8; O2SAT 98
--- NOTE | 2023-02-09 22:41 | PC.NURSE ---
This RN assumed care at 1900. Patient noted to be walking around with walker and 1:1 sitter present. Patient given PRN Ativan for agitation as documented in AUG. At 2254, patient noted to be increasingly agitated and attempting to leave, becoming verbally abusive and attempting to hit staff. Security called for assistance, report given to Valeriy CARBAJAL
[2023-02-10 07:42] VITALS: BP 152/71; PULSE 78; RESP 16; O2SAT 93
[2023-02-10] MEDS: Valsartan 80 MG TABLET PO (08:20)
[2023-02-10] MEDS: Metoprolol Succinate ER 50 MG TAB.ER.24H PO (08:20)
[2023-02-10] MEDS: Amoxicillin/Potassium Clav 875 MG TABLET PO (08:20)
[2023-02-10] MEDS: Leflunomide 10 MG TABLET 20 MG PO (08:20)
--- NOTE | 2023-02-10 09:53 | MHC.CM.ED ---
Patient remains in ER overflow. Will return to [facility] assisted living [facility]. [facility] will not be able to start services for 3-4 days. Referral sent in [facility]. [facility] has accepted patient. Patient aware and agreeable. Transport booked for 10am. Patient, William CARBAJAL and Marni PARIS aware. Continue to monitor for d/c needs.
== END 2023-02-10 09:56 | disposition home or self-care (01) ==
PROVIDERS: Physician Assistant Medical; Emergency Provider Emergency Medicine; PCP Family Medicine
DX: S09.90XA Unspecified injury of head, initial encounter (principal); W19.XXXA Unspecified fall, initial encounter; M54.2 Cervicalgia; G30.0 Alzheimer's disease with early onset; F02.80 Dementia in other diseases classified elsewhere, unspecified severity, without behavioral disturbance, psychotic disturbance, mood disturbance, and anxiety; R26.81 Unsteadiness on feet; I10 Essential (primary) hypertension; Y93.9 Activity, unspecified; Y92.099 Unspecified place in other non-institutional residence as the place of occurrence of the external cause; Y99.9 Unspecified external cause status; Z20.822 Contact with and (suspected) exposure to COVID-19
CPT/HCPCS: 70450; 71046; 72125; 80048; 80076; 81003; 85025; 87635; 97161; 99285